=== PATIENT | female | born 1985 | race Caucasian/White ===

== ENCOUNTER 2018-10-30 16:11 | Emergency (ER) | payer MEDICAID ==
[~2018-10-30] VITALS: Ht 160 cm; Wt 58.5 kg
[2018-10-30 16:35] VITALS: Ht 160 cm; Wt 58.5 kg
[2018-10-30 17:50] VITALS: BP 119/76
== END 2018-10-30 17:50 | disposition home or self-care (01) ==
LOC: ED 16:11
DX: K02.9 Dental caries, unspecified (principal); J03.90 Acute tonsillitis, unspecified
CPT/HCPCS: J7512